=== PATIENT | female | born 1985 | race Caucasian/White ===

== ENCOUNTER 2016-05-20 14:17 | Emergency (ER) | payer MEDICAID ==
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
[2016-05-20 16:06] LABS: % BASOPHILS 0.1 % (0.0-2.0); % EOSINOPHILS 1.3 % (0.0-5.0); % LYMPHOCYTES 16.3 % (20.0-50.0); % MONOCYTES 3.4 % (2.0-10.0); % NEUTROPHILS 78.9 % (40.0-80.0); MEAN CORPUSCULAR HEMOGLOBIN 29.4 pg (27.0-31.0); MEAN CORPUSCULAR HGB CONC 34.2 pg (28.0-36.0); MEAN PLATELET VOLUME 7.1 fl; NEUTROPHILE ABSOLUTE 10.3 Th/cmm (1.8-8.0); PLATELET COUNT 347 Th/cmm (150-400); RED BLOOD COUNT 5.11 Mil/cmm (3.80-5.10)
[2016-05-20 16:18] LABS: PROTHROMBIN TIME (TEST) 10.4 SECONDS (9.5-11.5)
[2016-05-20 16:21] LABS: ANION GAP 9.9 (7.0-16.0); BUN - UREA NITROGEN 11 mg/dL (7-25); CALCIUM SERUM 9.8 mg/dL (8.6-10.3); CARBON DIOXIDE 25.8 mEq/L (21.0-31.0); CHLORIDE 105 mEq/L (98-107); CREATININE - SERUM 0.5 mg/dL (0.6-1.2); GLUCOSE 104 mg/dL (70-105); POTASSIUM SERUM 3.7 mEq/L (3.5-5.1); SODIUM SERUM 137 mEq/L (136-145)
--- NOTE | 2016-05-21 09:45 | Diagnostic Imaging Report ---
CT scan cervical spine HISTORY: Pain, trauma Total DLP equals 433 CTDI equals 21.1 Axial sections were obtained through the cervical spine. Additional sagittal and coronal reformatted images are provided. There is reversal of the cervical lordosis that may be associated with spasm. Degenerative spur formation noted off the posterior superior margin of the body of C5. Minimal narrowing of the C4-5 disc space. Alignment is maintained. No acute abnormalities. No fractures. The prevertebral soft tissues appear normal. IMPRESSION: 1. Reversal of the cervical lordosis that may be associated with spasm 2. Degenerative changes C4-5, 3. No acute abnormalities
--- NOTE | 2016-05-21 09:52 | Diagnostic Imaging Report ---
Left shoulder (2 views) HISTORY: Pain No acute bony abnormalities. No fractures. Joint spaces appear normal. IMPRESSION: No acute abnormalities
--- NOTE | 2016-05-21 09:52 | Diagnostic Imaging Report ---
Left RIBS (4 views) HISTORY: Pain No acute bony abnormalities. No fractures. No acute pulmonary parenchymal or pleural abnormalities. IMPRESSION: No acute abnormalities
--- NOTE | 2016-05-21 09:53 | Diagnostic Imaging Report ---
Left humerus (3 views) HISTORY: Pain, trauma No acute bony abnormalities. No fractures. IMPRESSION: No acute abnormalities
== END 2016-05-20 20:05 | disposition home or self-care (01) ==
LOC: ER 14:17
DX: S13.9XXA Sprain of joints and ligaments of unspecified parts of neck, initial encounter (principal); S20.212A Contusion of left front wall of thorax, initial encounter; S40.012A Contusion of left shoulder, initial encounter; F17.200 Nicotine dependence, unspecified, uncomplicated; V89.2XXA Person injured in unspecified motor-vehicle accident, traffic, initial encounter; Y93.89 Activity, other specified; Y92.488 Other paved roadways as the place of occurrence of the external cause; Y99.8 Other external cause status
CPT/HCPCS: 99285; 96374; 93005; 71101; 73000; 73060; 72125; 84484; 36415; 85025; 85610; 82550; 81025; 80048; J1885